=== PATIENT | female | born 1970 | race Caucasian/White ===

== ENCOUNTER 2021-07-08 17:46 | Emergency (ER) | payer OTHER ==
[2021-07-08 18:01] VITALS: BP 152/84; PULSE 85; TEMP 97.6; BMI 32.5
[2021-07-08] MEDS ORDERED: ACETAMINOPHEN 325 MG TABLET (FP) PO ONE (19:02)
[2021-07-08] MEDS ORDERED: DIPHTH,PERTUSS(ACELL),TET 0.5 ML DISP.SYRIN IM ONE ×2 (19:02→21:15)
[2021-07-08] MEDS ORDERED: IBUPROFEN 600 MG TABLET (FP) PO ONE (21:06)
== END 2021-07-08 21:19 | disposition home or self-care (01) ==
LOC: JERFT 17:46
PROC: 3E0234Z Introduction of Serum, Toxoid and Vaccine into Muscle, Percutaneous Approach (ICD-10-PCS; principal; 2021-07-08)
DX: M54.2 Cervicalgia (principal); W19.XXXA Unspecified fall, initial encounter; Y92.9 Unspecified place or not applicable
CPT/HCPCS: 70450-TC; 72100-TC-FY; 72125-TC; 73030-TC-LT-FY; 73130-TC-LT-FY; 73130-TC-RT-FY; 73562-TC-RT-FY; 90471; 90715; 99284-25